=== PATIENT | female | born 1985 | race Caucasian/White ===

== ENCOUNTER 2016-10-08 03:20 | Emergency (ER) | payer BC ==
[2010-02-03 08:45] VITALS: BMI 27.5
[2016-10-08 03:49] LABS: BASOPHILS 0.1 % (0-2); EOSINOPHILS 0.4 % (0-7); HEMATOCRIT 38.8 % (36.0-48.0); HEMOGLOBIN 13.3 g/dL (12-16); IMMATURE GRANULOCYTES 0.6 % (0-5); LYMPHOCYTES 7.1 % (15-50); MCH 28.8 pg (26.0-34.0); MCHC 34.3 g/dL (31.0-37.0); MEAN PLATELET VOLUME 11.9 fL (7.4-10.4); NEUTROPHILS 90.8 % (40-80); PLATELET COUNT 152 10x3/uL (130-400); RBC 4.62 10x6/uL (4.00-5.40); RDW 14.1 % (11.5-14.5); WBC 7.2 10x3/uL (4.8-10.8)
[2016-10-08 03:55] LABS: APPEARANCE CLOUDY (CLEAR); BILIRUBIN NEGATIVE (NEGATIVE); COLOR YELLOW (YELLOW); GLUCOSE 1000 mg/dL (NEGATIVE); KETONE SMALL mg/dL (NEGATIVE); LEUKOCYTE ESTERASE 2+ (NEGATIVE); NITRITE POSITIVE (NEGATIVE); PROTEIN TRACE mg/dL (NEGATIVE); SPECIFIC GRAVITY 1.005 (1.005-1.020); UROBILINOGEN NORMAL (NORMAL)
[2016-10-08 03:56] LABS: BACTERIA MANY /hpf (NONE SEEN); EPITHELIAL CELLS 0-5 /hpf (0-5); RED CELLS - URINE 0-5 /hpf (0-5)
[2016-10-08 04:05] LABS: ALBUMIN 3.4 g/dL (3.4-5.0); ANION GAP 21.9 mmol/L (8-16); BILIRUBIN - TOTAL 0.75 mg/dL (0.2-1.3); CALCIUM 9.2 mg/dL (8.5-10.1); CARBON DIOXIDE 22.5 mmol/L (21.0-32.0); CREATININE - SERUM 1.3 mg/dL (0.6-1.3); HCG SERUM NEGATIVE (NEGATIVE); MAGNESIUM - SERUM 1.3 mg/dL (1.8-2.4); PROTEIN - SERUM 7.2 g/dL (6.4-8.2)
[2016-10-08 04:06] LABS: POTASSIUM - SERUM 2.4 mmol/L (3.5-5.1)
== END 2016-10-08 06:33 | disposition home or self-care (01) ==
LOC: D.ER 03:20
PROVIDERS: Emergency Medicine
DX: N39.0 Urinary tract infection, site not specified (principal); E87.6 Hypokalemia; E11.9 Type 2 diabetes mellitus without complications; E83.42 Hypomagnesemia; D64.9 Anemia, unspecified; R11.10 Vomiting, unspecified; F17.200 Nicotine dependence, unspecified, uncomplicated; Z79.4 Long term (current) use of insulin

== ENCOUNTER → 2017-10-12 17:10 | Outpatient (CLI) | payer MEDICAID ==
[2010-02-03 08:45] VITALS: BMI 27.5
== END | disposition home or self-care (01) ==
LOC: D.CT 17:10
DX: J18.9 Pneumonia, unspecified organism (principal)

== ENCOUNTER 2019-03-09 12:20 | Emergency (ER) | payer MEDICAID ==
[~2019-03-09] VITALS: Ht 162.6 cm; Wt 68.2 kg
[2019-03-09 12:41] VITALS: Ht 162.6 cm; Wt 68.2 kg
[2019-03-09 12:52] LABS: BASOPHILS 0.1 % (0-2); EOSINOPHILS 0.2 % (0-7); HEMATOCRIT 40.5 % (36.0-48.0); HEMOGLOBIN 13.9 g/dL (12-16); IMMATURE GRANULOCYTES 0.4 % (0-5); MCH 31.2 pg (26.0-34.0); MCHC 34.3 g/dL (31.0-37.0); MCV 90.8 fL (80.0-100.0); MEAN PLATELET VOLUME 10.7 fL (7.4-10.4); MONOCYTES 4.2 % (2-11); NEUTROPHILS 83.1 % (40-80); RBC 4.46 10x6/uL (4.00-5.40); RDW 13.1 % (11.5-14.5); WBC 19.2 10x3/uL (4.8-10.8)
[2019-03-09 12:55] LABS: PLATELET COUNT 247 10x3/uL (130-400)
[2019-03-09 13:22] LABS: ALBUMIN 3.2 g/dL (3.4-5.0); ALKALINE PHOSPHATASE 95 U/L (46-116); ALT (SGPT) 19 U/L (10-68); BILIRUBIN - TOTAL 0.72 mg/dL (0.2-1.3); CALCIUM 9.1 mg/dL (8.5-10.1); CHLORIDE - SERUM 104 mmol/L (98-107); CKMB 0.6 U/L (0.0-3.6); CREATINE KINASE 85 UL (21-215); CREATININE - SERUM 0.7 mg/dL (0.6-1.3); MAGNESIUM - SERUM 1.7 mg/dL (1.8-2.4); POTASSIUM - SERUM 3.6 mmol/L (3.5-5.1); PROTEIN - SERUM 7.8 g/dL (6.4-8.2); SODIUM 140 mmol/L (136-145); UREA NITROGEN 9 mg/dL (7-18); eGFR NON AFRICAN AMERICAN > 90 mL/min (90-120)
[2019-03-09 13:26] LABS: CALC OSMOLALITY 273 mosm/kg (275-300); THYROID STIMULATING HORMONE 1.67 uIU/mL (0.36-3.74); TROPONIN-I < 0.017 ng/mL (0.000-0.060)
[2019-03-09 13:28] LABS: GLUCOSE 30 mg/dL (74-106)
[2019-03-09 13:29] LABS: APTT 32.6 SECONDS (22.8-39.4); INR 1.17 (0.85-1.17); PROTIME 14.4 SECONDS (11.6-15.0)
[2019-03-09 13:56] LABS: APPEARANCE CLEAR (CLEAR); BILIRUBIN NEGATIVE (NEGATIVE); COLOR YELLOW (YELLOW); GLUCOSE 500 mg/dL (NEGATIVE); KETONE MODERATE mg/dL (NEGATIVE); NITRITE NEGATIVE (NEGATIVE); PROTEIN NEGATIVE (NEGATIVE); UROBILINOGEN NORMAL (NORMAL)
[2019-03-09 14:00] LABS: UDS - AMPHET NEGATIVE QUAL (NEGATIVE); UDS - BARB NEGATIVE QUAL (NEGATIVE); UDS - BENZO NEGATIVE QUAL (NEGATIVE); UDS - COCAINE NEGATIVE QUAL (NEGATIVE); UDS - OPIATE NEGATIVE QUAL (NEGATIVE); UDS - PCP NEGATIVE QUAL (NEGATIVE); UDS - THC POSITIVE QUAL (NEGATIVE)
[2019-03-09] MEDS ORDERED: KEFLEX500 MG PO (14:11)
[2019-03-09 14:48] VITALS: BP 119/68
== END 2019-03-09 15:05 | disposition home or self-care (01) ==
LOC: D.ER 12:20
PROVIDERS: Family Medicine
DX: O26.899 Other specified pregnancy related conditions, unspecified trimester (principal); Z3A.00 Weeks of gestation of pregnancy not specified; R41.82 Altered mental status, unspecified; J32.9 Chronic sinusitis, unspecified; E16.2 Hypoglycemia, unspecified; E11.9 Type 2 diabetes mellitus without complications

== ENCOUNTER 2019-06-07 09:54 | Outpatient (CLI) | payer MEDICAID ==
[2019-03-09 12:41] VITALS: BMI 25.8
[~2019-06-07 09:54] MED LIST: KEFLEX500 MG PO
[2019-06-07 10:44] LABS: ALBUMIN 2.7 g/dL (3.4-5.0); ALKALINE PHOSPHATASE 122 U/L (30-120); ALT (SGPT) 19 U/L (10-68); BILIRUBIN - TOTAL 0.41 mg/dL (0.2-1.3); CALC OSMOLALITY 273 mosm/kg (275-300); CALCIUM 8.4 mg/dL (8.5-10.1); CARBON DIOXIDE 23.2 mmol/L (21.0-32.0); CHLORIDE - SERUM 103 mmol/L (98-107); CREATININE - SERUM 0.7 mg/dL (0.6-1.3); POTASSIUM - SERUM 3.8 mmol/L (3.5-5.1); PROTEIN - SERUM 6.3 g/dL (6.4-8.2); SODIUM 136 mmol/L (136-145); UREA NITROGEN 6 mg/dL (7-18); eGFR NON AFRICAN AMERICAN > 90 mL/min (90-120)
[2019-06-07 10:46] LABS: GLUCOSE 179 mg/dL (74-106)
[2019-06-07 10:51] LABS: BASOPHILS 0.2 % (0-2); EOSINOPHILS 0.6 % (0-7); HEMATOCRIT 37.5 % (36.0-48.0); HEMOGLOBIN 12.6 g/dL (12-16); IMMATURE GRANULOCYTES 1.4 % (0-5); MCH 30.8 pg (26.0-34.0); MCHC 33.6 g/dL (31.0-37.0); MCV 91.7 fL (80.0-100.0); MEAN PLATELET VOLUME 11.7 fL (7.4-10.4); NEUTROPHILS 70.8 % (40-80); PLATELET COUNT 226 10x3/uL (130-400); RBC 4.09 10x6/uL (4.00-5.40); RDW 13.2 % (11.5-14.5)
[2019-06-07 11:14] LABS: BACTERIA MODERATE /hpf (NEGATIVE); BILIRUBIN NEGATIVE (NEGATIVE); EPITHELIAL CELLS 0-5 /hpf (0-5); GLUCOSE 1000 mg/dL (NEGATIVE); KETONE NEGATIVE (NEGATIVE); NITRITE NEGATIVE (NEGATIVE); RED CELLS - URINE RARE /hpf (0-5); UROBILINOGEN NORMAL (NORMAL)
== END 2019-06-08 09:25 | disposition home or self-care (01) ==
LOC: D.LDO 09:54 → D.LD 09:54 → D.LDO 06-08 09:25
PROVIDERS: ATTEND Obstetrics & Gynecology
DX: O24.419 Gestational diabetes mellitus in pregnancy, unspecified control (principal)

== ENCOUNTER → 2019-07-05 16:10 | Outpatient (CLI) | payer MEDICAID ==
[2019-03-09 12:41] VITALS: BMI 25.8
== END | disposition home or self-care (01) ==
LOC: D.LDO 16:10
PROVIDERS: ATTEND Obstetrics & Gynecology
DX: O24.919 Unspecified diabetes mellitus in pregnancy, unspecified trimester (principal); Z3A.00 Weeks of gestation of pregnancy not specified

== ENCOUNTER → 2019-07-19 16:09 | Outpatient (CLI) | payer MEDICAID ==
[2019-03-09 12:41] VITALS: BMI 25.8
== END | disposition home or self-care (01) ==
LOC: D.LDO 16:09
PROVIDERS: ATTEND Obstetrics & Gynecology
DX: O24.913 Unspecified diabetes mellitus in pregnancy, third trimester (principal); Z3A.35 35 weeks gestation of pregnancy

== ENCOUNTER 2019-07-27 19:09 | Inpatient (IN) | payer MEDICAID ==
[~2019-07-27] VITALS: Ht 156.2 cm; Wt 66.8 kg
[2019-07-27 20:17] LABS: UDS - AMPHET NEGATIVE QUAL (NEGATIVE); UDS - BARB NEGATIVE QUAL (NEGATIVE); UDS - BENZO NEGATIVE QUAL (NEGATIVE); UDS - COCAINE NEGATIVE QUAL (NEGATIVE); UDS - OPIATE NEGATIVE QUAL (NEGATIVE); UDS - PCP NEGATIVE QUAL (NEGATIVE); UDS - THC NEGATIVE QUAL (NEGATIVE)
[2019-07-27 20:24] LABS: BILIRUBIN NEGATIVE (NEGATIVE); GLUCOSE 50 mg/dL (NEGATIVE); KETONE NEGATIVE (NEGATIVE); NITRITE NEGATIVE (NEGATIVE); UROBILINOGEN NORMAL (NORMAL)
[2019-07-27 20:25] LABS: BACTERIA MODERATE /hpf (NEGATIVE); EPITHELIAL CELLS 0-5 /hpf (0-5); RED CELLS - URINE 0-5 /hpf (0-5); WHITE CELLS - URINE 0-5 /hpf (NEGATIVE)
[2019-07-27 21:22] LABS: HEMATOCRIT 37.5 % (36.0-48.0); HEMOGLOBIN 12.6 g/dL (12-16); MCH 30.4 pg (26.0-34.0); MCHC 33.6 g/dL (31.0-37.0); MCV 90.6 fL (80.0-100.0); MEAN PLATELET VOLUME 12.3 fL (7.4-10.4); RBC 4.14 10x6/uL (4.00-5.40); RDW 13.5 % (11.5-14.5); WBC 13.4 10x3/uL (4.8-10.8)
[2019-07-27] MEDS ORDERED: NOVOLOG100 UNIT/1 (21:30)
[2019-07-27] MEDS ORDERED: BASAGLAR K100 UNIT/1 SC (21:31)
[2019-07-27] MEDS ORDERED: PRENAVITE1 TAB PO (21:32)
[2019-07-27] MEDS ORDERED: ZOFRAN ODT4 MG/UDTAB SL (21:34)
[2019-07-27] MEDS ORDERED: REGLAN5 MG PO (21:35)
[2019-07-27] MEDS ORDERED: ASPIRIN81 MG PO (21:37)
[2019-07-27 22:57] VITALS: BP 118/72; Ht 156.2 cm; Wt 66.8 kg
--- NOTE | 2019-07-28 04:22 | NUR ---
PT REC'D IN BED THIS AM HOLDING BABY AT THIS TIME. NO DISTRESS NOTED. .Gibson QUIROZ RN
--- NOTE | 2019-07-28 15:52 | NUR ---
SEE [employer] NOTES FOR TRANSFER OF PATIENT INFORMATION. INFANT IN CRIB, FOB IN ROOM, NO REQUESTS. DECLINED GALDINO PATCH. TO CALL WHEN NEEDING TO GET UP FIRST TIME. CALL LIGHT IN REACH. SIDERAILS UP X 2.
--- NOTE | 2019-07-28 16:44 | NUR ---
PATIENT SAYS SHE TAKES BASAGLAR 24 UNITS AT 0700 AND 2100 DAILY. FOLLOWS A CARBOHYDRATE SLIDING SCALE FOR HER NOVOLOG INSULIN TID BASED ON HER CARB COUNT AT MEALS. HER PARTNER JUST LEFT TO GET THE SLIDING SCALE FOR USE WHILE IN THE HOSPITAL. CURRENT BS IS 120. SAYS SHE DOES NOT TAKE INSULINE IF BETWEEN 70-120. WILL RECHECK BS 2 HOURS PP ORDERED. IN ROOM. TO CALL IF ANYTHING IS NEEDED.
--- NOTE | 2019-07-28 18:00 | NUR ---
U/1 FIRM MIDLINE, RUBRA MOD ON PAD. UP TO BR TO VOID. VOIDED 300 ML URINE. NO CLOTS NOTED. RUSH-CARE WITH WARM WATER AND BETADINE. CLEAN PERIPAD AND UNDERWEAR ON. RETURNED TO BED. FINISHED EATING BETWEEN 1700 AND 1715. FOB HAS NOT RETURNED FROM HOME WITH PATIENT SLIDING SCALE. LIGHTS TURNED ON LOW. SIDERAILS UP X 2, CALL LIGHT IN REACH. RUSH-PADS X 2 WEIGHED- 67 ML.
[2019-07-28 20:02] VITALS: BP 118/71
--- NOTE | 2019-07-28 20:02 | NUR ---
RN TO PT BEDSIDE FOR ASSESSMENT, PT COMPLAINS OF 1/10 PAIN TO ABDOMEN, VSS. FUNDUS IS FIRM, MIDLINE, 2 BELOW, SCANT RUBRA LOCHIA NOTED TO PERIPAD. PT STATES HER NEEDS ARE CURRENTLY MET AT THIS TIME. CALL LIGHT IN REACH. FOB AT BEDSIDE. SIDE RAILS UPX2, BED IN LOWEST POSITION.
--- NOTE | 2019-07-28 22:28 | NUR ---
PT RESTING IN BED, VISITING WITH FOB, FOB HOLDING , PT DENIES NEEDS OR PAIN AT THIS TIME
--- NOTE | 2019-07-28 23:04 | NUR ---
PT AWAKE, VISITING WITH FOB, ADM VALTREX PER MD ORDERS, SEE EMAR, PT DENIES NEEDS OR PAIN AT THIS TIME, INFANT IN OPEN CRIB CART AT BEDSIDE
--- NOTE | 2019-07-29 | NUR ---
IV BEEPING, THIS RN TO ROOM, IV CONVERTED TO SALINE LOCK, FLUSHED WITH 10MLS OF NS WITH NO DIFFICULTY, PT DENIES NEEDS OR PAIN, FOB HOLDING INFANT AT THIS TIME
--- NOTE | 2019-07-29 02:04 | NUR ---
PT AWAKE, FILLING OUT NSY PAPERWORK, DENIES NEEDS OR PAIN, IN OPEN CRIB CART AND FOB AT BEDSIDE
--- NOTE | 2019-07-29 04:05 | NUR ---
PT RESTING WITH EYES CLOSED, RESP QUIET, NO DISTRESS NOTED, LEFT UNDISTURBED AT THIS TIME, IN OPEN CRIB CART AD FOB ASLEEP ON COUCH
--- NOTE | 2019-07-29 04:45 | NUR ---
INFANT TO NS. BLOOD DRAWN FROM RIGHT OUTER HEEL FOR D.STICK OF 43. TAKEN TO ROOM TO FEED. INSTRUCTIONS GIVEN TO PARENT TO FEED NOW. INFANT PLACED IN DAD'S ARMS AND OPENED FORMULA BOTTLE GIVEN TO DAD.
--- NOTE | 2019-07-29 05:10 | NUR ---
ROOM CHECK DONE. DAD STATES THAT BABY "JUST TOOK A FEW SIPS." UP IN ARMS TO DEMONSTRATE FEEDING INFANT TO DAD. INFANT TOOK 18 ML SHREE GENTLE FORMULA WITH GOOD SUCK. INFANT HANDED TO DAD WITH DEMONSTRATION AND VERBAL INSTRUCTION ON HOW TO BURP . DAD RETURNED DEMONSTATION BURPING . INSTRUCTED DAD TO FEED MORE FORMULA AFTER INFANT BURPS. DAD STATES UNDERSTANDING. MOM ASLEEP AT THIS TIME.
--- NOTE | 2019-07-29 05:45 | NUR ---
ROOM CHECK DONE. TOOK NO MORE FORMULA FOR DAD. UP IN DAD'S ARMS ASLEEP.
--- NOTE | 2019-07-29 06:38 | NUR ---
DR. NOVOA CALLED AND NOTIFIED THAT PT'S FSBS IS 41, ORDER TO PROVIDE PT WITH CRACKERS AND PEANUT BUTTER AT THIS TIME.
[2019-07-29 07:00] VITALS: BP 107/71
[2019-07-29 07:31] LABS: HEMATOCRIT 33.2 % (36.0-48.0); HEMOGLOBIN 11.2 g/dL (12-16); LYMPHOCYTES 10.2 % (15-50); MCH 30.1 pg (26.0-34.0); MCHC 33.7 g/dL (31.0-37.0); MCV 89.2 fL (80.0-100.0); MEAN PLATELET VOLUME 11.5 fL (7.4-10.4); NEUTROPHILS 85.5 % (40-80); RBC 3.72 10x6/uL (4.00-5.40); WBC 12.5 10x3/uL (4.8-10.8)
[2019-07-29 07:32] LABS: PLATELET COUNT 170 10x3/uL (130-400)
--- NOTE | 2019-07-29 10:05 | NUR ---
DR NOVOA CALLED L&D ORDERS RECEIVED TO GIVE 4 UNITS HUMALOG INSTEAD OF THE 8 SHE PREVIOUSLY ORDERED. PTS RN NOTIFIED.
--- NOTE | 2019-07-29 13:37 | NUR ---
0700 AWAKE ALERT LYING IN BED VOICES NO COMPLAINTS ASSESSMENT COMPLETE SMALL AMOUNY LOCHOA NOTED FUNDUS FIRM BELOW THE UMBILICUS
--- NOTE | 2019-07-29 13:44 | NUR ---
0800 BREAKFAST TRAY SERVED CARB COUNT IN PLACE
--- NOTE | 2019-07-29 13:45 | NUR ---
[address] NOVOA NEW INSTRUCTIONS GIVEN TO GIVE LANTUS 24 UNITS SQ AND HUMALOG 8 UNITS
--- NOTE | 2019-07-29 13:48 | NUR ---
1005 DR NOVOA CALLED BACK AND CHANGED THE HUMALOG INSTRUCTIONS TO GIVING ONLY 4 UNITS SQ AND TO REPEAT CHECKING THE BLOOD SUGAR BEFORE LUNCH AND CALL HER THE RESULTS
--- NOTE | 2019-07-29 13:51 | NUR ---
1145 [facility] [address] NOVOA RESULTS INSTRUCTED TO GIVE HUMALOG 8 UNITS SQ
--- NOTE | 2019-07-29 13:53 | NUR ---
1300 AMBULATING IN ROOM AND TO TOILET WITHOUT DIFICULTY SPOUSSE REMAINS IN ROOM HOLDING THE BABY
--- NOTE | 2019-07-29 14:16 | NUR ---
[address] NOVOA STATED TO GIVE HUMALOG 2 UNITS SQ. NEW ORDERS NOTED ON CHANGES IN LANTUS DOSING
--- NOTE | 2019-07-29 16:40 | NUR ---
EVENING MEAL ON UNIT. FSBS 67. PT REFUSES INSULIN AT THIS. WILL EAT AND RN WILL RECHECK POST PRANIAL FSBS IN 2 HR AND REPORT TO MD PER ORDER.
[2019-07-29 16:44] VITALS: BP 132/84
--- NOTE | 2019-07-29 18:55 | NUR ---
FSBS 159, 2 UNITS GIVEN PER SSI ORDER. BEDSIDE REPORT GIVEN TO Taryn QUIROZ RN PT PREPARING TO FEED INFANT. DENIES NEEDS. L WRIST PIV D/C'D PER PT REQUEST AND REDNESS AND PAIN NOTED, TIP INTACT, BANDAID APPLIED.
[2019-07-29 19:30] VITALS: BP 112/74
--- NOTE | 2019-07-29 19:30 | NUR ---
PT REC'D IN BED AT THIS TIME. STATES PAINIS A 03/30. NO DISTRESS NOTED. ASSESSEMNT PER FLOWESHEET. SIDERAILS UP FOR SAFETY. CALL LIGHT IN PT REACH. Gibson QUIROZ RN
--- NOTE | 2019-07-29 20:50 | NUR ---
DENIES PAIN AT THIS TIME. NO PAIN NOTED PER PATIENT. Gibson QUIROZ RN
--- NOTE | 2019-07-29 21:12 | NUR ---
FINGER STICK BLOOD SUGAR 90 AT [facility]. PT PROVIDED PEANUT BUTTER AND CRACKERS FOR SNACK WITH 2% MILK. Gibson QUIROZ RN
--- NOTE | 2019-07-29 21:31 | NUR ---
LANTUS 20 UNITS GIVEN AT THIS TIME. SUBQ. PT TOLERATED WELL. 100% OF SNACK EATEN. Gibson QUIROZ RN
--- NOTE | 2019-07-29 22:50 | NUR ---
PT REC'D IN BED. DENIES NEEDS AT THIS TIME. STATES PAIN IS A 0/10. L RICHIE RN
--- NOTE | 2019-07-30 00:38 | NUR ---
PT REC'D PUTTING INFANT IN CRB. DENIES ANY NEEDS AT THIS TIME. NO PAIN PER PATIENT. Gibson QUIROZ RN
--- NOTE | 2019-07-30 02:20 | NUR ---
PT REC'D ASLEEP BUT EASILY AWAKENED. DENIES NEEDS OR PAIN AT THIS TIME. Gibson QUIROZ RN
--- NOTE | 2019-07-30 04:35 | NUR ---
pt rec'd in bed asleep at this time. at side in crib. no distress noted. shani jacobs rn
--- NOTE | 2019-07-30 06:10 | NUR ---
finger stick blood sugar this am is 47. pt states that she thought she was low. she states that she drank some orange juice around 4 am because she thought she was low. pt states she thought the orange juice would bring it up. pt ptovided with 4 oz of orange juice and 1 packet of faviola crackers and 1 packet of peanut butter. shani jacobs rn
--- NOTE | 2019-07-30 06:27 | NUR ---
dr cooper called at this time and informed of 47 blood sugar and interventions. md states to give 1 more packet of peanut butter and 1 packet of faviola crackers but no more juice. pt taken food ordered by at this time. shani jacobs rn
--- NOTE | 2019-07-30 07:05 | NUR ---
REPEAT GLUCOSE THIS AM 114. L NAZANIN QUIROZ
[2019-07-30 07:44] VITALS: BP 126/76
--- NOTE | 2019-07-30 07:44 | NUR ---
SHIFT ASSESSMENT COMPLETED PER FLOWSHEET. VSS. FUNDUS FIRM, MIDLINE AND U2 WITH SMALL AMT RUBRA LOCHIA, NO CLOTS. 28 UNITS LANTUS GIVEN, PT REFUSES HUMALOG AT THIS TIME, STATING THAT "IT DROPPED TOO LOW LAST NIGHT AGAIN AND IT WILL JUST DROP AGAIN." BREAKFAST TRAY TO ROOM AND PT EATING 45 CARBS WITH MORNING MEAL. DENIES PAIN AND NEEDS. BONDING WITH . BED IN LOW POSITION WITH SRUP X2. CALL LIGHT AND PHONE WITHIN REACH. WILL CONTINUE TO MONITOR.
--- NOTE | 2019-07-30 09:50 | NUR ---
FSBS 250. 4 UNITS HUMALOG GIVEN PER SSI ORDER. REFUSED NICOTINE PATCH. PT REQUESTS TO D/C HOME. DISCUSSED ROOMING IN OPTION WITH PT, STATES THAT SHE WISHES TO D/C HOME REGARDLESS AND CAN STAY IN NBN. STATES THAT SHE IS TIRED AND IS DOES NOT WANT NURSING STAFF INTERRUPTING AND CONTINUALLY ROUNDING IN ROOM ON HER DURING THE NIGHT, STATES "I CAN'T GET ANY REST AT ALL AND THIS BED IS AWFUL." WILL DISCUSS WITH DR. NOVOA AND NBN. ICE PROVIDED. DENIES ADDITIONAL NEEDS. BED IN LOW POSITION WITH SRUP X2. CALL LIGHT AND PHONE WITHIN REACH. WILL CONTINUE TO MONITOR.
--- NOTE | 2019-07-30 10:52 | NUR ---
DR. NOVOA CALLS UNIT. REPORT GIVEN REGARDING 2 HOUR POST PRANIAL FSBS 250 AND 4 UNITS GIVEN PER SSI ORDER. ORDERS REC'D.
--- NOTE | 2019-07-30 11:14 | NUR ---
POC AND NEW ORDERS DISCUSSED WITH PT, VERBALIZES UNDERSTANDING AND DENIES QUESTIONS. AGREES TO INSULIN DOSE AT THIS TIME. SIGNIFICANT OTHER AT BEDSIDE, SUPPORTIVE AND ATTENTIVE TO PT AND INFANT NEEDS. WILL CONTINUE TO MONITOR. BED IN LOW POSITION WITH SRUP X2. CALL LIGHT AND PHONE WITHIN REACH.
--- NOTE | 2019-07-30 12:26 | NUR ---
FSBS 47. TRAY ON BEDSIDE TABLE WITH 45 CARBS PRESENT IN MEAL. COVERED WITH 3 UNIT HUMALOG PER PT SSI ORDER. PT EATING MEAL WHEN RN OUT OF ROOM. FOB AT BEDSIDE BOTTLE FEEDING . BED IN LOW POSITION WITH SRUP X2. CALL LIGHT AND PHONE WITHIN REACH. WILL CONTINUE TO MONITOR.
--- NOTE | 2019-07-30 13:53 | NUR ---
RN TO BEDSIDE FOR 2 HR POST PRANIAL FSBS. PT WITH HOME GLUCOMETER OUT CHECKING BLOOD SUGAR, READING IS 53. PT REFUSES TO LET RN CHECK FSBS. STATES THAT "IT'S TO LOW AND I'M LEAVING REGARDLESS." STATES THAT INFANT HAS BEEN D/C'D AND SIGNIFICANT OTHER IS ON HIS WAY TO PICK HER AND INFANT UP. PER NBN INFANT HAS BEEN D/C'D. EXPLAINED TO PT OF NOW IF SHE LEAVES IT WILL BE AMA, EXPLAINED AMA, PT VERBALIZES UNDERSTANDING. EXPLAINED RISKS OF LEAVING AMA, VERBALIZES UNDERSTANDING.
--- NOTE | 2019-07-30 13:58 | NUR ---
AMA FORM EXPLAINED TO PT, OFFERED TO LEFT PT SPEAK WITH DR. NOVOA, DECLINED BY PT.
--- NOTE | 2019-07-30 14:00 | NUR ---
DR. NOVOA NOTIFIED TO AC FSBS, 2 HOURS POST PRANIAL PER PT GLUCOMETER, PT REFUSAL TO ALLOW RN TO CHECK FSBS WITH HOSPITAL GLUCOMETER, AND PT SIGNING OUT AMA. PER DR. NOVOA INSTRUCT PT SCHEDULE 2 WEEK FOLLOW UP APPT WITH [facility].
--- NOTE | 2019-07-30 14:06 | NUR ---
PP INSTRUCTIONS PROVIDED TO PT, VERBALIZES UNDERSTANDING. [facility] AND [employer] HANDOUTS PROVIDED. PT INSTRUCTED TO CONTACT [facility] TO SCHEDULE 2 WEEK FOLLOW UP APPT, VERBALIZES UNDERSTANDING AND DENIES QUESTIONS.
--- NOTE | 2019-07-30 14:18 | NUR ---
AMBULATORY OFF UNIT WITH IN CAR SEAT.
--- NOTE | 2019-07-30 17:05 | MORECARE ---
CASE MANAGEMENT DISCHARGE SUMMARY PATIENT: MP CAMARA UNIT: [id number] ADM DATE: 07/27/19 AGE: 34 : 81 SEX: F ROOM/BED: D.1274 AUTHOR: ALONSO NEGRO PHYSICIAN: REFERRING PHYSICIAN: ALON NOVOA DO DATE OF SERVICE: 07/30/19 Discharge Plan Patient Name: MP CAMARA Facility: [facility]:[place] : 1985 Planned Disposition: Home Anticipated Discharge Date: 07/30/19 Discharge Date: 07/30/2019 Expected LOS: 3 Initial Reviewer: [email or web address] Initial Review Date: 07/27/2019 Generated: 07/30/19 6:04 pm Patient Name: MP CAMARA Page [id number] at [id number] All edits/amendments must be made on the electronic document DICTATION DATE: 07/30/191703 SENIOR GAME DESIGNER: ROXY 07/30/191703 RPT#: [id number] DC DATE:07/30/19 STATUS: DIS IN [facility] [address] [place] [address] END OF REPORT
[2019-07-31 06:09] LABS: RAPID PLASMA REAGIN Non Reactive (Non Reactive)
== END 2019-07-30 14:18 | disposition left against medical advice (07) | DRG 807 ==
LOC: D.LDO 19:09 → D.LD 20:50
PROVIDERS: ADMIT Student in an Organized Health Care Education/Training Program; ATTEND Student in an Organized Health Care Education/Training Program
PROC: 10E0XZZ Delivery of Products of Conception, External Approach (ICD-10-PCS; principal; 2019-07-28)
DX: O24.12 Pre-existing type 2 diabetes mellitus, in childbirth (principal); Z37.0 Single live birth; E11.40 Type 2 diabetes mellitus with diabetic neuropathy, unspecified; Z3A.37 37 weeks gestation of pregnancy; O99.334 Smoking (tobacco) complicating childbirth; F17.200 Nicotine dependence, unspecified, uncomplicated; O69.81X0 Labor and delivery complicated by cord around neck, without compression, not applicable or unspecified; O71.82 Other specified trauma to perineum and vulva; O34.83 Maternal care for other abnormalities of pelvic organs, third trimester; N81.10 Cystocele, unspecified